=== PATIENT | male | born 1995 | race Caucasian/White ===

== ENCOUNTER → 2021-07-18 12:18 | Outpatient (CLI) | payer BC, SELFPAY ==
[2021-07-18 15:07] LABS: Erythrocyte Sedimentation Rate 5 mm/hr (0-20)
[2021-07-18 15:08] LABS: Absolute Lymphocyte Count 1.74 X10^3/uL (0.83-4.51); Absolute Neutrophil Count 2.9 X10^3/uL (2.0-7.7); Basophil# 0.03 X10^3/uL; Basophil% 0.6 % (0-1); Eosinophil# 0.13 X10^3/uL; Eosinophils% 2.5 % (0-5); Hematocrit 42.8 % (40-54); Hemoglobin 13.9 g/dL (13.0-16.5); Lymphocyte # 1.74 X10^3/ul (0.83-4.51); Lymphocyte % 33.3 % (19-41); Mean Corp Hgb Conc 32.5 g/dL (32-36); Mean Corpuscular Hgb 26.6 pg (27.0-32.0); Mean Corpuscular Volume 81.8 fL (80-94); Mean Platelet Vol. 10.4 fl (6.2-12.0); Monocyte# 0.44 X10^3/uL; Monocyte% 8.4 % (0-10); NRBC Flagged by Analyzer 0 % (0-5); Neutrophil # 2.86 X10^3/uL (2.7-7.7); Neutrophil % 54.8 % (47-70); Platelet Count 282 K/mm3 (150-450); RBC Distribution Width CV 14.1 % (11.6-14.6); RBC Distribution Width SD 41.4 fl (35.1-43.9); Red Blood Count 5.23 M/mm3 (4.6-6.2); White Blood Count 5.2 K/mm3 (4.4-11.0)
== END ==
PROVIDERS: PCP Family Medicine; Referring Provider Family Medicine; Visit Provider Family Medicine
DX: R59.0 Localized enlarged lymph nodes (principal)
CPT/HCPCS: 36415; 85025; 85652

== ENCOUNTER → 2021-08-01 08:38 | Outpatient (CLI) | payer BC, SELFPAY ==
--- NOTE | 2021-08-01 08:44 | US_ITS ---
STUDY: THYROID ULTRASOUND REASON FOR EXAM: Male, 25 years old. Swelling R antieror neck - along anterior cervical chain, ? lymph TECHNIQUE: Ultrasound evaluation of the thyroid was performed with real-time and static claudio-scale imaging. COMPARISON: None. FINDINGS: RIGHT LOBE: The right lobe of the thyroid gland measures 4.7 cm x 1.8 cm x 1.8 cm. There is a homogeneous echotexture. There are no demonstrated solid, cystic or complex lesions. LEFT LOBE: The left lobe of the thyroid gland measures 4.9 cm x 1.7 cm x 1.6 cm. There is a homogeneous echotexture. There are no demonstrated solid, cystic or complex lesions. ISTHMUS: The isthmus measures 3 mm. Incidental note is made of a 2.4 cm x 2.1 cm x 0.7 cm lymph node in the lower cervical region. US/Thyroid IMPRESSION: Normal ultrasound examination of the thyroid. 2.4 cm x 2.1 cm x 0.7 cm right cervical lymph node. This corresponds to the palpable abnormality. Electronically Signed: Justin Stanley MD at 12:42 EST , Service support ,
== END ==
PROVIDERS: PCP Family Medicine; Referring Provider Family Medicine; Visit Provider Family Medicine
DX: R59.0 Localized enlarged lymph nodes (principal)
CPT/HCPCS: 76536